=== PATIENT | female | born 1940 | race Caucasian/White ===

== ENCOUNTER 2024-05-04 13:41 | Outpatient (CLI) | payer MEDICARE | END 2024-05-04 13:42 | disposition home or self-care (01) | LOC: CSHULT 13:41 | PROVIDERS: ATTEND Family Medicine | DX: Z13.0 Encounter for screening for diseases of the blood and blood-forming organs and certain disorders involving the immune mechanism (principal) ==

== ENCOUNTER 2025-01-05 11:24 | Outpatient (CLI) | payer MEDICARE | END 2025-01-05 11:25 | disposition home or self-care (01) | LOC: CSHRAD 11:24 | PROVIDERS: ATTEND Family Medicine | DX: M17.0 Bilateral primary osteoarthritis of knee (principal); M21.161 Varus deformity, not elsewhere classified, right knee; M25.461 Effusion, right knee ==